=== PATIENT | female | born 1975 ===

== ENCOUNTER 2021-05-05 10:16 | Emergency (ER) | payer OTHER, SELFPAY ==
[2021-05-05 10:20] VITALS: BP 124/96; PULSE 88; RESP 14; TEMP 36.9; O2SAT 99; BMI 18.8
[2021-05-05 10:54] LABS: COVID19 -Nasal RAPID Negative (Negative)
--- NOTE | 2021-05-05 11:38 | ED.URI ---
HPI - URI/Sore Throat General Chief Complaint: Upper Respiratory Symptoms Stated Complaint: Poss ear infection, throat irritation Time Seen by Provider: 05/05/21 11:23 Source: patient Mode of arrival: Ambulatory Limitations: no limitations History of Present Illness HPI Narrative: Patient is a healthy 45-year-old female visiting from [place]. This morning she woke up with bilateral sharp shooting ear pain. No fever or chills. She feels like she has pressure on her teeth. Her throat is mildly sore. No cough or headache. She is currently afebrile. She is not vaccinated for COVID. Related Data Allergies Allergy/AdvReac Type Severity Reaction Status Date / Time acetaminophen [From Percocet] Allergy Verified 05/05/21 10:22 oxycodone [From Percocet] Allergy Verified 05/05/21 10:22 Review of Systems Review of Systems Narrative: GENERAL: Denies chills,fever HEENT: See HPI RESPIRATORY: Denies dyspnea, cough, wheezing CARDIOVASCULAR: Denies chest pain, palpitations GASTROINTESTINAL: Denies nausea, vomiting MUSCULOSKELETAL: Denies extremity pain, injury SKIN: No rash, no laceration, no pruritus NEUROLOGIC: Denies weakness, dizziness, headache, numbness 8 point review of systems is negative except for those stated above and HPI Patient History Social History Smoking Status: Current every day smoker Smoking Status: Current every day smoker alcohol intake frequency: holidays/special occasions only Substance Use Type: does not use Exam Initial Vital Signs Initial Vital Signs: Vital Signs Temperature 98.4 F 05/05/21 10:20 Pulse Rate 88 05/05/21 10:20 Respiratory Rate 14 05/05/21 10:20 Blood Pressure 124/96 H 05/05/21 10:20 Pulse Oximetry 99 05/05/21 10:20 GENERAL: Well-appearing 45-year-old female HEENT: Head atraumatic,EOMI, pupils reactive, face symmetric, moist mucous membranes, no meningeal signs EARS: Tympanic membranes visualized, no erythema or bulging, no hemotympanum PHARYNX: No erythema, no tonsillar exudate, no cervical lymphadenopathy CARDIOVASCULAR: Regular rate and rhythm without murmurs, rubs or gallops. RESPIRATORY: Breath sounds equal bilaterally, no wheezes rales or rhonchi. EXTREMITIES: Normal range of motion, no clubbing or edema. Neurovascularly intact NEUROLOGICAL: Alert and oriented x4.Normal gait and speech. SKIN: Warm, dry, no laceration, no petechiae, no rashes or lesions. Course Orders Ordered: ED Orders 05/05/21 10:24 COVID19 -Nasal swab/Pre-Proc Stat Vital Signs Vital signs: Vital Signs - 8 hr 05/05/21 10:20 Temperature 98.4 F Pulse Rate 88 Respiratory Rate 14 Blood Pressure 124/96 H Pulse Oximetry 99 MDM - URI/Sore Throat Lab Data Labs: Lab Results 05/05/21 Range/Units 10:24 SARS-CoV-2 (PCR) Negative (Negative) Point of Care Testing Rapid Strep A Negative MDM Narrative Medical decision making narrative: This time patient overall appears well. Negative strep negative COVID I recommend she repeat her COVID test if still having symptoms in 5 days. Discharge Plan Departure Patient Disposition: Home Clinical Impression: Upper respiratory infection Instructions: DI for Viral Upper Respiratory Infection -- Adult Activity Restrictions/Additional Instructions: *You have been diagnosed with his upper respiratory infection *What to do: At this time her COVID test and strep test are negative. However if you are still having symptoms in 5 days please be retested for COVID. At this time he likely have a viral syndrome. Recommend Neti pot. No antibiotics are indicated at this time. *Continue to take medications as directed *Follow up with your primary care provider in 2-3 days *Return to ER if you should have increasing pain, fever, shortness of breath or any new, worsening or concerning symptoms Referrals: [facility] [Outside]
== END 2021-05-05 11:57 | disposition home or self-care (01) ==
PROVIDERS: Emergency Provider Emergency Medicine
DX: J06.9 Acute upper respiratory infection, unspecified (principal); Z20.822 Contact with and (suspected) exposure to COVID-19; F17.200 Nicotine dependence, unspecified, uncomplicated
CPT/HCPCS: 87635; 87880; 99281; 99282; C9803